=== PATIENT | male | born 1960 | race Caucasian/White ===

== ENCOUNTER → 2023-09-18 | Outpatient (CLI) | payer OTHER ==
[~2023-09-18] MED LIST: ACETAMINOPHEN PO; ATENOLOL100 MG PO; BUTALBITAL PO; CAFFEINE PO; HCTZ 25MG25 MG PO; Iohexol 300 - 10 ML VIAL IV ONE; LISINOPRIL40 MG PO; METOCLOPRAMIDE10 M1 PO; OMEPRAZOLE20 MG PO; SIMVASTATIN40 MG PO; Triamcinolone 40 MG/ML 1 ML VIAL IJ ONE
== END ==
LOC: COL.RAD 10:42
DX: M16.11 Unilateral primary osteoarthritis, right hip (principal)
CPT/HCPCS: J0665; J3301; Q9967